=== PATIENT | male | born 1980 | race Caucasian/White ===

== ENCOUNTER 2018-01-12 19:24 | Emergency (ER) | payer SELFPAY ==
[2018-01-12] MEDS: predniSONE 10 MG TABLET PO (20:12)
[2018-01-12] MEDS: ALBUTEROL SULFATE 2.5 MG/3 ML NEBU. NEB (20:24)
[2018-01-12] MEDS: DOXYCYCLINE HYCLATE 100 MG TABLET PO (21:00)
== END 2018-01-12 21:00 | disposition home or self-care (01) ==
LOC: ER 19:24
DX: J18.1 Lobar pneumonia, unspecified organism (principal)
CPT/HCPCS: 71046; 94640; 99284-25; J7512; J7613

== ENCOUNTER 2018-01-15 01:09 | Emergency (ER) | payer SELFPAY | END 2018-01-15 02:45 | disposition home or self-care (01) | LOC: ER 01:09 | DX: R05 Cough (principal); R06.02 Shortness of breath; Z87.01 Personal history of pneumonia (recurrent) | CPT/HCPCS: 99283 ==

== ENCOUNTER 2018-02-04 09:50 | Emergency (ER) | payer SELFPAY | END 2018-02-04 11:43 | disposition home or self-care (01) | LOC: ER 09:50 | DX: S93.501A Unspecified sprain of right great toe, initial encounter (principal); I10 Essential (primary) hypertension; X58.XXXA Exposure to other specified factors, initial encounter; Y93.89 Activity, other specified; Y92.89 Other specified places as the place of occurrence of the external cause; Y99.8 Other external cause status | CPT/HCPCS: 73630; 99284 ==

== ENCOUNTER 2018-05-25 06:14 | Emergency (ER) | payer BC ==
[~2018-05-25] VITALS: Ht 170.2 cm; Wt 108.9 kg
[~2018-05-25 06:14] MED LIST: BENZ100C PO; DOXY100C2 PO; LEVO500T59 PO; PRED50TA PO; VENTOLIN HFA18 GM INH
[2018-05-25 06:23] VITALS: BP 163/95
--- NOTE | 2018-05-25 06:43 | PHYS DOC ---
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 He denies any fever or chills. Patient is also concerned because his blood pressure has been elevated recently. He indicates that he just recently got into [facility] and has been exercising a lot and is wondering what he can do to improve his blood pressure. He denies any chest pain or shortness breath. He states that nothing worsens or improves his symptoms. Review of Systems Review of Systems Constitutional: Denies fever or chills [] HENT: Complains of sore throat [] Respiratory: Denies cough or shortness of breath [] Cardiovascular: Denies chest pain[] All other systems were reviewed and found to be within normal limits, except as documented in this note. Allergies Allergies Allergies Coded Allergies Type Severity Reaction Last Updated Verified No Known Drug Allergies 01/12/18 No Physical Exam Physical Exam Constitutional: Well developed, well nourished, no acute distress, non-toxic appearance. [] HENT: Normocephalic, atraumatic, bilateral external ears normal, posterior oropharynx demonstrates pharyngeal erythema without accidents. [] Eyes: PERRLA, EOMI, conjunctiva normal, no discharge. [] Neck: Normal range of motion, no tenderness, supple, no stridor. There is cervical lymphadenopathy present bilaterally. [] Cardiovascular: Heart rate regular rhythm [] Lungs & Thorax: Bilateral breath sounds clear to auscultation [] Skin: Warm, dry, no erythema, no rash. [] Neurologic: Alert and oriented X 3. [] Current Patient Data Vital Signs Vital Signs Date Time Temp Pulse Resp B/P (MAP) Pulse Ox O2 Delivery O2 Flow Rate FiO2 05/25/18 06:23 98.1 84 16 163/95 (117) 98 Room Air 98.1 EKG EKG [] Radiology/Procedures Radiology/Procedures [] Course & Med Decision Making Course & Med Decision Making Pertinent Labs and Imaging studies reviewed. (See chart for details) [] Dragon Disclaimer Dragon Disclaimer This electronic medical record was generated, in whole or in part, using a voice recognition dictation system. Departure Departure Impression: Primary Impression: Pharyngitis Additional Impression: Hypertension Disposition: 01 HOME, SELF-CARE Condition: STABLE Referrals: NO PCP (PCP) Patient Instructions: Hypertension, Viral Pharyngitis Additional Instructions: Drink plenty of clear liquids and take Tylenol or ibuprofen as needed for symptom relief. Follow-up with primary care provider to discuss treatment of high blood pressure. Problem Qualifiers Primary Impression: Pharyngitis Pharyngitis/tonsillitis etiology: unspecified etiology Qualified Codes: J02.9 - Acute pharyngitis, unspecified Additional Impression: Hypertension Hypertension type: essential hypertension Qualified Codes: I10 - Essential ( primary) hypertension JAVIER SNYDER Jr. DO May 25, 2018 06:43
== END 2018-05-25 06:57 | disposition home or self-care (01) ==
LOC: ER 06:14
DX: J02.9 Acute pharyngitis, unspecified (principal); I10 Essential (primary) hypertension
CPT/HCPCS: 87070; 87880; 99283

== ENCOUNTER 2018-11-04 14:10 | Emergency (ER) | payer BC, OTHER ==
[~2018-11-04] VITALS: Ht 170.2 cm; Wt 108.9 kg
[2018-11-04 14:19] VITALS: BP 151/98
[2018-11-04] MEDS ORDERED: TETRACAINE 0.5% OPHTH SOLUTION 4ML BOTTLE. OD ONE (14:45)
[2018-11-04] MEDS ORDERED: DIPHTH,PERTUSS(ACELL),TET TOX 0.5 ML DISP.SYRIN. VAX IM ONE (14:45)
[2018-11-04] MEDS ORDERED: FLUORESCEIN OPHTH TEST STRIP. OD ONE (14:45)
--- NOTE | 2018-11-04 14:57 | PHYS DOC ---
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 Patient states it feels like there is something stuck in his right eye. He denies any vision changes or watering from his eye. 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 He is unsure when his last tetanus immunization was (JADE ASENCIO APRN) Review of Systems Review of Systems Constitutional: Denies fever or chills [] Eyes: Denies change in visual acuity, redness, See HPI Respiratory: Denies cough or shortness of breath [] Neurologic: Denies headache, focal weakness or sensory changes [] (JADE ASENCIO APRN) Current Medications Current Medications Current Medications Medications (Trade) Dose Ordered Sig/Jazmine Start Time Stop Time Status Last Admin Dose Admin Diphtheria/ Tetanus/Acell Pertussis (Boostrix) 0.5 ml ONCE ONCE 11/04/18 14:45 11/04/18 14:46 DC 11/04/18 14:57 0.5 ML Erythromycin (Romycin) 0.25 inch 1X ONCE 11/04/18 16:45 11/04/18 16:46 DC 11/04/18 16:45 0.25 INCH Fluorescein Sodium (Ful-Shawna) 1 strip 1X ONCE 11/04/18 14:45 11/04/18 14:46 DC 11/04/18 14:55 1 STRIP Tetracaine HCl (Tetracaine) 1 drop 1X ONCE 11/04/18 14:45 11/04/18 14:46 DC 11/04/18 14:55 1 DROP (NICOLAS STEWART DO) Allergies Allergies Allergies Coded Allergies Type Severity Reaction Last Updated Verified No Known Drug Allergies 01/12/18 No (NICOLAS STEWART DO) Physical Exam Physical Exam Constitutional: Well developed, well nourished, no acute distress, non-toxic appearance. [] HENT: Normocephalic, atraumatic, bilateral external ears normal, nose normal. [] Eyes: PERRLA, EOMI, no discharge, there is a visible metal foreign body noted to the right of the iris at 9 o'clock Skin: Warm, dry, no erythema, no rash. [] Neurologic: Alert and oriented X 3, normal motor function, normal sensory function, no focal deficits noted. [] Psychologic: Affect normal, judgement normal, mood normal. [] (JADE ASENCIO APRN) Physical Exam Constitutional: Well developed, well nourished, no acute distress, non-toxic appearance. [] Eyes: PERRL, EOMI, no discharge, No fluorescein uptake, metallic foreign body to cornea at 10 o'clock position to right eye, NO Lyle sign (NICOLAS STEWART DO) Current Patient Data Vital Signs Vital Signs Date Time Temp Pulse Resp B/P (MAP) Pulse Ox O2 Delivery O2 Flow Rate FiO2 11/04/18 14:19 98.6 87 16 151/98 (115) 97 Room Air 98.6 (NICOLAS STEWART DO) EKG EKG [] (JADE ASENCIO APRN) Radiology/Procedures Radiology/Procedures [] (JADE ASENCIO APRN) Course & Med Decision Making Course & Med Decision Making Pertinent Labs and Imaging studies reviewed. (See chart for details) [] (JADE ASENCIO APRN) Dragon Disclaimer Dragon Disclaimer This electronic medical record was generated, in whole or in part, using a voice recognition dictation system. (JADE ASENCIO APRN) Eye Procedure Eye Procedure : Alcaine Drops Administered: Yes (Tetracaine) Eye FB Removal: other Antibiotic Ointment/Drps Admin: right eye (erythromycin ophthalmic ointment) Progress Verbal consent obtained. Slit lamp exam performed with retained metallic corneal foreign body noted to 10 o'clock position. Tetracaine administered. Fluorescein placed. Uptake to foreign body. Ophthalmic karyn utilized to successful remove foreign body with interval corneal abrasion. NO Lyle sign. Tetracaine ophthalmic ointment placed. (NICOLAS STEWART DO) Departure Departure Impression: Primary Impression: Corneal foreign body Disposition: 01 HOME, SELF-CARE Condition: STABLE Referrals: NO PCP (PCP) Venkata HICKMAN MD Patient Instructions: Eye - Corneal Foreign Body Scripts Erythromycin Base (Erythromycin) 1 Gm Oint...g. 0.25 INCH OP QID for 5 Days, MISC Prov: NICOLAS STEWART DO 11/04/18 Attending Signature Attending Signature I have personally interviewed and examined the patient. All charts, labs, and imaging studies were reviewed. I agree with the PA/BANKRUPTCY ASSISTANT's findings, exam, and plan. (NICOLAS STEWART DO) Problem Qualifiers Primary Impression: Corneal foreign body Encounter type: initial encounter Laterality: right Qualified Codes: T15.01XA - Foreign body in cornea, right eye, initial encounter JADE ASENCIO APRN Nov 04, 2018 14:57 NICOLAS STEWART DO Nov 04, 2018 16:49
[2018-11-04] MEDS ORDERED: ERYTHROMYCIN 0.5% OPHTH OINTMENT 1GM TUBE. OD ONE (16:45)
[2018-11-04] MEDS ORDERED: ERYT1OIN6 OP (16:49)
== END 2018-11-04 17:02 | disposition home or self-care (01) ==
LOC: ER 14:10
DX: T15.01XA Foreign body in cornea, right eye, initial encounter (principal)
CPT/HCPCS: 65222; 90471; 90715; 99284

== ENCOUNTER 2018-11-27 13:05 | Emergency (ER) | payer SELFPAY ==
[~2018-11-27 13:05] MED LIST changes: +ERYT1OIN6 OP
== END 2018-11-27 13:43 | disposition left against medical advice (07) ==
LOC: ER 13:05
DX: S09.92XA Unspecified injury of nose, initial encounter (principal); Z53.21 Procedure and treatment not carried out due to patient leaving prior to being seen by health care provider; X58.XXXA Exposure to other specified factors, initial encounter; Y93.89 Activity, other specified; Y92.89 Other specified places as the place of occurrence of the external cause; Y99.8 Other external cause status

== ENCOUNTER 2018-11-28 15:44 | Emergency (ER) | payer SELFPAY ==
[~2018-11-28] VITALS: Ht 170.2 cm; Wt 108.9 kg
[2018-11-28 16:20] VITALS: BP 153/103
--- NOTE | 2018-11-28 16:57 | RAD ---
3 view study of the nasal bones Clinical indications: Injury and pain. FINDINGS: No nasal bone fracture is seen. No nasal septal deviation is seen. Orbital floors are symmetric and intact. IMPRESSION: No acute fracture. Electronically signed by: Meng Light MD (11/28/2018 4:55 PM) [facility]
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
== END 2018-11-28 17:05 | disposition home or self-care (01) ==
LOC: ER 15:44
DX: S00.33XA Contusion of nose, initial encounter (principal); W50.0XXA Accidental hit or strike by another person, initial encounter; Y93.89 Activity, other specified; Y92.89 Other specified places as the place of occurrence of the external cause; Y99.8 Other external cause status
CPT/HCPCS: 70160; 99283

== ENCOUNTER → 2019-09-29 | Emergency (ER) | payer SELFPAY ==
[~2019-09-29] VITALS: Ht 170.2 cm; Wt 108.9 kg
[2019-09-29 06:15] VITALS: BP 151/101
[2019-09-29 06:45] LABS: INFLUENZA A PATIENT POSITIVE (NEGATIVE); INFLUENZA B PATIENT NEGATIVE (NEGATIVE)
--- NOTE | 2019-09-29 06:50 | PHYS DOC ---
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 Patient reports subjective fever, sore throat myalgias and cough 2 days. Denies shortness of breath, wheezing or history of asthma. Headache, neck stiffness rash. No abdominal pain diarrhea. No other acute symptoms complaints. No medications or therapy's taken prior to ED arrival..[] Review of Systems Review of Systems Review symptoms as per history of present illness. All other review of symptoms are negative. All other systems were reviewed and found to be within normal limits, except as documented in this note. Allergies Allergies Allergies Coded Allergies Type Severity Reaction Last Updated Verified No Known Drug Allergies 01/12/18 No Physical Exam Physical Exam Constitutional: Well developed, well nourished, no acute distress, non-toxic appearance. [] HENT: Normocephalic, atraumatic, bilateral external ears normal, oropharynx moist, nose normal. [] Eyes: PERRL, EOMI, conjunctiva normal. [] Neck: Normal range of motion, no tenderness. [] Cardiovascular:Heart rate regular rhythm, no murmur [] Lungs & Thorax: Bilateral breath sounds clear to auscultation [] Abdomen: Bowel sounds normal, soft, no tenderness. [] Skin: Warm, dry. [] Back: No tenderness. [] Extremities: No tenderness, no cyanosis, no clubbing, ROM intact, no edema. [] Neurologic: Alert and oriented X 3, normal motor function, normal sensory function, no focal deficits noted. [] Psychologic: Affect normal, judgement normal, mood normal. [] Current Patient Data Vital Signs Vital Signs Date Time Temp Pulse Resp B/P (MAP) Pulse Ox O2 Delivery O2 Flow Rate FiO2 09/29/19 06:15 98.5 91 18 151/101 (118) 95 Room Air 98.5 Lab Values Laboratory Tests Test 09/29/19 06:03 Influenza Type A Antigen Positive (NEGATIVE) Influenza Type B Antigen Negative (NEGATIVE) EKG EKG [] Radiology/Procedures Radiology/Procedures [] Course & Med Decision Making Course & Med Decision Making Pertinent Labs and Imaging studies reviewed. (See chart for details) [Influenza A positive without respiratory compromise. Recommend supportive care.] Breonna Disclaimer Dragon Disclaimer This electronic medical record was generated, in whole or in part, using a voice recognition dictation system. Departure Departure Impression: Primary Impression: Elevated blood pressure reading Additional Impression: Influenza-like illness Disposition: HOME, SELF-CARE Condition: STABLE Patient Instructions: Influenza, Adult, [id number] Additional Instructions: You were evaluated in the emergency department for fever body aches, sore throat. Your symptoms are consistent with influenza-like illness, which can last up to 5 days. Please increase fluids take ibuprofen and Tylenol for pain. Follow-up with a local primary care physician treated 5 days if symptoms persist. While in the emergency department your blood pressure was noted to be elevated, 150/100. It is important that you follow up with yourr primary care physician when you are not sick to confirm a diagnosis of hypertension and to start blood pressure medication. Problem Qualifiers TYLER GILBERT DO Sep 29, 2019 06:50
== END ==
LOC: ER 05:10
DX: J11.1 Influenza due to unidentified influenza virus with other respiratory manifestations (principal); R03.0 Elevated blood-pressure reading, without diagnosis of hypertension
CPT/HCPCS: 87804; 99284

== ENCOUNTER 2020-06-13 08:26 | Emergency (ER) | payer SELFPAY ==
[~2020-06-13] VITALS: Ht 170.2 cm; Wt 109.0 kg
[2020-06-13 08:40] VITALS: BP 202/102
--- NOTE | 2020-06-13 08:56 | PHYS DOC ---
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 Patient states he stepped on a nail about a month ago but removed it and over last weeks throbbing intermittent pain is centralized to the right MTP joint on the first toe. Pain is worse with range of motion pain is moderate in severity at rest and severe with walking or palpation. Pain is nonradiating. Patient denies any fevers chills cough. Review of Systems: Review of Systems: Constitutional: Denies fever or chills. [] Eyes: Denies change in visual acuity. [] HENT: Denies nasal congestion or sore throat. [] Respiratory: Denies cough or shortness of breath. [] Cardiovascular: Denies chest pain or edema. [] GI: Denies abdominal pain, nausea, vomiting, bloody stools or diarrhea. [] : Denies dysuria. [] Musculoskeletal: Denies back pain but has right great toe pain Integument: Denies rash. [] Neurologic: Denies headache, focal weakness or sensory changes. [] Endocrine: Denies polyuria or polydipsia. [] Lymphatic: Denies swollen glands. [] Psychiatric: Denies depression or anxiety. [] Heart Score: Risk Factors: Risk Factors: DM, Current or recent (<one month) smoker, HTN, HLP, family history of CAD, obesity. Risk Scores: Score 0 - 3: 2.5% MACE over next 6 weeks - Discharge Home Score 4 - 6: 20.3% MACE over next 6 weeks - Admit for Clinical Observation Score 7 - 10: 72.7% MACE over next 6 weeks - Early Invasive Strategies Allergies: Allergies: Allergies Coded Allergies Type Severity Reaction Last Updated Verified No Known Drug Allergies 01/12/18 No Physical Exam: PE: Constitutional: Well developed, well nourished, no acute distress, non-toxic appearance. [] HENT: Normocephalic, atraumatic, bilateral external ears normal, no trismus, nose normal. [] Eyes: PERRLA, EOMI, conjunctiva normal, no discharge. [] Neck: Normal range of motion, no tenderness, supple, no stridor. [] Cardiovascular:Heart rate regular rhythm, peripheral pulses intact, cap refill brisk Lungs & Thorax: Bilateral breath sounds clear, no respiratory distress Abdomen:, Nondistended nontender Skin: Warm, dry, no erythema, no rash. [] Back: No tenderness, no CVA tenderness. [] Extremities: Right great toe with tenderness at the MTP joint without significant erythema or warmth. Mild limited range of motion due to pain. Neurovascular intact distally. Neurologic: Alert and oriented X 3, normal motor function, normal sensory function, no focal deficits noted. [] Psychologic: Affect normal, judgement normal, mood normal. [] Current Patient Data: Vital Signs: Vital Signs Date Time Temp Pulse Resp B/P (MAP) Pulse Ox O2 Delivery O2 Flow Rate FiO2 06/13/20 08:40 98.0 85 20 202/102 (135) 98 Room Air 98.0 EKG: EKG: [] Radiology/Procedures: Radiology/Procedures: [][facility] [address] [place] [address] IMAGING REPORT Signed PATIENT: NIEVES ROBERTS FACCOUNT: [id number] : 1980 LOCATION: ER AGE: 39 SEX: M EXAM STATUS: REG ER ORD. PHYSICIAN: KAT CEE MD REASON: r 1st toe pain, NO KNOWN INJURY PROCEDURE: FOOT RIGHT 3V PROCEDURE: FOOT RIGHT 3V CLINICAL INDICATION / HISTORY: Reason: r 1st toe pain, NO KNOWN INJURY / Spl. Instructions: / History: . TECHNIQUE: AP, lateral and oblique views of the right foot. COMPARISON: Left foot x-rays of 02/04/2018 FINDINGS: No fracture or dislocation is identified. The bone density is normal. The joint space widths are maintained, and there are no erosions to suggest an inflammatory arthropathy. No soft tissue abnormality is seen. IMPRESSION: No acute osseous abnormality. Electronically signed by: Sharon Benitez MD (06/13/2020 9:11 AM) [id number] DICTATED and SIGNED BY: SHARON BENITEZ MD DATE: 06/13/20 0911 Course & Med Decision Making: Course & Med Decision Making Pertinent Labs and Imaging studies reviewed. (See chart for details) [] 39-year-old male with right foot pain. X-ray is negative. Most likely patient has gout. Patient be treated indomethacin and pain medicine as well as antihypertensives for his blood pressure. Breonna Disclaimer: Breonna Disclaimer: This electronic medical record was generated, in whole or in part, using a voice recognition dictation system. Departure Departure Impression: Primary Impression: Acute gout involving toe of right foot Additional Impression: Hypertension Disposition: 01 HOME, SELF-CARE Condition: STABLE Referrals: NO PCP (PCP) pcp 2-3 days Patient Instructions: Gout, Hypertension Additional Instructions: EMERGENCY DEPARTMENT GENERAL DISCHARGE INSTRUCTIONS THANK YOU for coming to [facility] Emergency Department (ED) today and trusting us with your care. We trust that you had a positive experience in our Emergency Department. If you wish to speak to the department Management you can contact the supervisor line department at . YOUR FOLLOW UP INSTRUCTIONS ARE FOLLOWS: Do you have a private doctor? If you do not have a private doctor, please ask for a resource list of physicians or clinics that may be able to assist you with follow up care. The Emergency Physician has interpreted your x-rays. The X-ray specialist will also review them. If there is a change in the findings you will be notified in 48 hours when at all possible. A lab test or lab culture may have been done, your results will be reviewed and you will be notified if you need a change in treatment. ADDITIONAL INSTRUCTIONS AND INFORMATION Your care today has been supervised by a physician who is specially trained in emergency care. Many problems require more than one evaluation for a complete diagnosis and treatment. We recommend that you schedule your follow up appointment as recommended to ensure complete treatment of your illness or injury. If you are unable to obtain follow up care and continue to have a problem, or if your condition worsens we recommend that you return to the ED. We are not able to safely determine your condition over the phone nor are we able to give sound medical advice over the phone. For these safety reasons, if you call for medical advice we will ask you to come to the ED for further evaluation If you have any questions regarding these discharge instructions please call the ED at . SAFETY INFORMATION In the interest of safety, wellness, and injury prevention; we encourage you to wear your seatbelt, if you smoke; quit smoking, and we encourage your family to use protective helmet for bicycling and other sporting events that present an increased risk for head injury. IF YOUR SYMPTOMS WORSEN OR NEW SYMPTOMS DEVELOP, OR YOU HAVE CONCERNS ABOUT YOUR CONDITION; OR IF YOUR CONDITION WORSENS WHILE YOU ARE WAITING FOR YOUR FOLLOW UP APPOINTMENT; EITHER CONTACT YOUR PRIMARY CARE DOCTOR, THE PHYSICIAN WHOSE NAME AND NUMBER YOU WERE GIVEN, OR RETURN TO THE ED IMMEDIATELY. Scripts Amlodipine Besylate (NORVASC) 5 Mg Tablet 1 TAB PO DAILY, #30 TAB 5 Refills Prov: KAT CEE MD 06/13/20 Hydrocodone/Apap 5-325 (NORCO 5-325 TABLET) 1 Each Tablet 1-2 EACH PO PRN Q6HRS PRN for PAIN, #15 as needed for pain Prov: KAT CEE MD 06/13/20 Indomethacin (INDOMETHACIN) 50 Mg Capsule 1 CAP PO TID for arthritis for 10 Days, #30 CAP 0 Refills with food Prov: KAT CEE MD 06/13/20 Justicifation of Admission Dx: Justifications for Admission: Justification of Admission Dx: N/A KAT CEE MD Jun 13, 2020 08:56
--- NOTE | 2020-06-13 09:14 | RAD ---
PROCEDURE: FOOT RIGHT 3V CLINICAL INDICATION / HISTORY: Reason: r 1st toe pain, NO KNOWN INJURY / Spl. Instructions: / History: . TECHNIQUE: AP, lateral and oblique views of the right foot. COMPARISON: Left foot x-rays of 02/04/2018 FINDINGS: No fracture or dislocation is identified. The bone density is normal. The joint space widths are maintained, and there are no erosions to suggest an inflammatory arthropathy. No soft tissue abnormality is seen. IMPRESSION: No acute osseous abnormality. Electronically signed by: Mirian Panda MD (06/13/2020 9:11 AM) [id number]
[2020-06-13] MEDS ORDERED: HYDR-3164 PO (10:45)
[2020-06-13] MEDS ORDERED: INDO50CA15 PO (10:45)
[2020-06-13] MEDS ORDERED: AMLO5TAB4 PO (10:45)
== END 2020-06-13 11:36 | disposition home or self-care (01) ==
LOC: ER 08:26
DX: M10.9 Gout, unspecified (principal); I10 Essential (primary) hypertension
CPT/HCPCS: 73630; 99283

== ENCOUNTER 2021-01-30 12:53 | Emergency (ER) | payer SELFPAY ==
[~2021-01-30] VITALS: Ht 170.2 cm; Wt 124.4 kg
[~2021-01-30 12:53] MED LIST changes: +AMLO5TAB4 PO; +HYDR-3164 PO; +INDO50CA15 PO
[2021-01-30] MEDS ORDERED: NAPR-683 PO (13:29)
[2021-01-30] MEDS ORDERED: AMLO-186 PO (13:29)
--- NOTE | 2021-01-30 13:30 | PHYS DOC ---
Past Medical History Past Medical History: No Pertinent History Past Surgical History: Other Additional Past Surgical Histo: HERNIA REPAIR CHILD Smoking Status: Never Smoker Alcohol Use: Rarely Drug Use: None General Adult EDM: Chief Complaint: FOOT INJURY PAIN HPI: HPI: 40-year-old male who denies any past medical history presents the ED with complaints of right toe pain for the past 2 days, cannot recall any specific injury. States he recently started wrestling and is out of shape, thought the pain was a pulled muscle, worsened with weight bearing. Reports he was diagnosed with gout here in June. Not take any routine medications. Denies any alcohol or drug use. Is not a tobacco smoker. Declines lab draw. Has no pcp. Review of Systems: Review of Systems: Constitutional: Denies fever or chills. [] Eyes: Denies change in visual acuity. [] HENT: Denies nasal congestion or sore throat. [] Respiratory: Denies cough or shortness of breath. [] Cardiovascular: Denies chest pain or edema. [] GI: Denies abdominal pain, nausea, vomiting, Musculoskeletal: Denies back pain or CVA tenderness Integument: Denies rash or diaphoresis Neurologic: Denies headache, neck pain, focal weakness or sensory changes. Psychiatric: Denies depression or anxiety. [] Heart Score: C/O Chest Pain: No Risk Factors: Risk Factors: DM, Current or recent (<one month) smoker, HTN, HLP, family history of CAD, obesity. Risk Scores: Score 0 - 3: 2.5% MACE over next 6 weeks - Discharge Home Score 4 - 6: 20.3% MACE over next 6 weeks - Admit for Clinical Observation Score 7 - 10: 72.7% MACE over next 6 weeks - Early Invasive Strategies Allergies: Allergies: Allergies Coded Allergies Type Severity Reaction Last Updated Verified No Known Drug Allergies 01/12/18 No Physical Exam: PE: Constitutional: Well developed, well nourished, no acute distress, non-toxic appearance. HENT: Normocephalic, atraumatic, Eyes: EOMI, conjunctiva normal, no discharge. Neck: Normal range of motion, supple, Cardiovascular: S1/2 present, regular rhythm Lungs & Thorax: Speaking in full sentences, bilateral equal chest rise, no tachypnea or increased work of breathing Abd: soft, obese Skin: Warm, dry, no erythema, no rash. [] Extremities: No tenderness, no cyanosis, no lower extremity edema, mild swelling over right first metatarsal phalangeal joint/first toe with no increased warmth, rash or deformity, right DP/PT intact, cap refill less than 1 second, normal skin turgor, no plantar ecchymosis Neurologic: Alert and oriented X 3, normal motor function, normal sensory function, no focal deficits noted. [] Psychologic: Affect normal, judgement normal, mood normal. [] EKG: EKG: [] Radiology/Procedures: Radiology/Procedures: IMAGING REPORT Signed PATIENT: NIEVES ROBERTS FACCOUNT: [id number] : 1980 LOCATION: ER AGE: 40 SEX: M EXAM STATUS: REG ER ORD. PHYSICIAN: JUAN FRANCISCO LONG DO REASON: right toe pain, pt denies injury, pain medial aspect of metatarsal PROCEDURE: FOOT RIGHT 2V EXAM: Right foot, 2 views. HISTORY: Pain. COMPARISON: 06/13/2020 FINDINGS: 2 views of the right foot are obtained. There is no acute fracture, dislocation or subluxation. There are tiny radiodense bodies overlying the plantar aspect of the foot, likely on the skin surface. There is a tiny plantar spur. There is enthesopathy at the Achilles tendon insertion. There is accessory navicular bone. IMPRESSION: No acute osseous finding. Electronically signed by: Bella Guzman MD (01/30/2021 1:54 PM) [id number] DICTATED and SIGNED BY: BELLA GUZMAN MD DATE: 01/30/21 [id number] Course & Med Decision Making: Course & Med Decision Making Pertinent Labs and Imaging studies reviewed. (See chart for details) Concern for right toe joint pain, consider gout/podagra. Pt declines uric acid test/lab work in ed. Is not compliant with any prescribed medications. EMR reviewed and patient was treated with indomethacin and [place] for prior gout flare. Patient also has asymptomatic hypertension and will need urgent follow- up. BP was 202/102. On 06/2020, was prescribed Norvasc 5 mg. Will discharge home with strict ED return precautions were given for fever, rash, worsening pain, chest pain, dyspnea or stroke symptoms. Encouraged urgent outpatient follow-up with PMD within the next 3 to 5 days for blood pressure recheck and will refer to orthopedic surgery. Life-threatening processes were considered but are low suspicion at this time, given history, physical exam and ED workup. Pt was educated on all prescription medications and adverse effects. All patient's questions were answered and pt was stable at time of discharge. Life/limb-threatening differential includes but is not limited to, avascular necrosis, septic arthritis, malignancy, compartment syndrome, fracture/ligamentous injury/overuse, decompression sickness, seronegative spondyloarthropathies, trauma including dislocation/fracture, Lyme disease, lupus, arthritis differentials, gout/pseudogout or decompression sickness. I spoken with the patient and her caregivers. I explained the patient's condition, diagnoses and treatment plan based on the information available to me at this time. I have answered the patient and her caregiver's questions and addressed any concerns. The patient and her caregivers have a good understanding of patient's diagnosis, condition and treatment plan as can be expected at this point. Vital signs have been stable. Patient's condition is stable and appropriate for discharge from the emergency department. Patient will pursue further outpatient evaluation with primary care physician or other designated or consulting physician as outlined in the discharge instructions. The patient and/or caregivers are agreeable to this plan of care and follow-up instructions have been explained in detail. The patient and/or caregivers have received these instructions in written form and have expressed an understanding of the discharge instructions. The patient and/or caregivers are aware that any significant change of condition or worsening of symptoms should prompt immediate return to this or the closest emergency department or call to 911. Breonna Disclaimer: Breonna Disclaimer: This electronic medical record was generated, in whole or in part, using a voice recognition dictation system. Departure Departure Impression: Primary Impression: Pain in right toe(s) Additional Impression: Uncontrolled hypertension Disposition: 01 HOME / SELF CARE / HOMELESS Condition: STABLE Referrals: NO PCP (PCP) Follow-up in the next 3 to 5 days with your primary care physician or FOLLOW UP WITH FAMILY MEDICINE: Family Medicine Address: [address] [facility], [facility] [address] [place] [address] Phone: [phone] Patient Instructions: Gout, Hypertension Additional Instructions: FOLLOW UP WITH ORTHOPEDICS: Orthopaedic Sports Medicine Orthopaedic Surgery [facility] Address: [address] [address] EMERGENCY DEPARTMENT GENERAL DISCHARGE INSTRUCTIONS Thank you for coming to [facility] Emergency Department (ED) today and trusting us with you care. We trust that you had a positive experience in our Emergency Department. If you wish to speak to the department management, you may call the Director at [phone]. YOUR FOLLOW UP INSTRUCTIONS ARE FOLLOWS: 1. Do you have a private Doctor? If you do not have a private doctor, please ask for a resource list of physicians or clinics that may be able to assist you with follow up care. 2. The Emergency Physicain has interpreted your x-rays. The X-Ray specialist will also review them. If there is a change in the findings, you will be notified in 48 hours when at all possible. 3. A lab test or culture has been done, your results will be reviewed and you will be notified if you need a change in treatment. ADDITIONAL INSTRUCTIONS AND INFORMATION: 1. Your care today has been supervised by a physician who is specially trained in emergency care. Many problems require more than one evaluation for a complete diagnosis and treatment. We recommend that you schedule your follow up appointment as recommended to ensure complete treatment of you illness or injury. If you are unable to obtain follow up care and continue to have a problem, or if your condition worsens, we recommend that you return to the ED. 2. We are not able to safely determine your condition over the phone nor are we able to give sound medical advice over the phone. For these safety reasons, if you call for medical advice we will ask you to come to the ED for further evaluation. 3. If you have any questions regarding these discharge instructions please call the ED at [phone]. SAFETY INFORMATION: In the interest of safety, wellness, and injury prevention; we encourage you to wear your sealbelt, if you smoke; quite smoking, and we encourage family to use a protective helmet for bicycling and other sporting events that present an increased risk for head injury. IF YOUR SYMPTOMS WORSEN OR NEW SYMPTOMS DEVELOP, OR YOU HAVE CONCERNS ABOUT YOUR CONDITION; OR IF YOUR CONDITION WORSENS WHILE YOU ARE WAITING FOR YOUR FOLLOW UP APPOINTMENT; EITHER CONTACT YOUR PRIMARY CARE DOCTOR, THE PHYSICIAN WHOSE NAME AND NUMBER YOU WERE GIVEN, OR RETURN TO THE ED IMMEDIATELY. Scripts Amlodipine Besylate (AMLODIPINE BESYLATE) 5 Mg Tablet 5 MG PO DAILY for 30 Days, #30 TAB 0 Refills Prov: JUAN FRANCISCO LONG DO 01/30/21 Naproxen (NAPROSYN) 500 Mg Tablet 1 TAB PO BID for pain, #20 TAB Prov: JUAN FRANCISCO LONG DO 01/30/21 JUAN FRANCISCO LONG DO Jan 30, 2021 13:29
--- NOTE | 2021-01-30 13:56 | RAD ---
EXAM: Right foot, 2 views. HISTORY: Pain. COMPARISON: 06/13/2020 FINDINGS: 2 views of the right foot are obtained. There is no acute fracture, dislocation or subluxat ion. There are tiny radiodense bodies overlying the plantar aspect of the foot, likely on the skin stone rface. There is a tiny plantar spur. There is enthesopathy at the Achilles tendon insertion. There is accessory navicular bone. IMPRESSION: No acute osseous finding. Electronically signed by: Bella Guzman MD (01/30/2021 1:54 PM) [id number]
[2021-01-30 14:58] VITALS: BP 206/112
== END 2021-01-30 14:58 | disposition home or self-care (01) ==
LOC: ER 12:53
DX: M79.674 Pain in right toe(s) (principal); I10 Essential (primary) hypertension; M10.9 Gout, unspecified
CPT/HCPCS: 73620; 99283